=== PATIENT | female | born 1950 | race Caucasian/White ===

== ENCOUNTER 2016-05-24 21:07 | Emergency (ER) | payer OTHER ==
[2016-05-24 21:32] LABS: MANUAL DIFF NEEDED? NO
[2016-05-24 21:36] LABS: BASO% 0.2 % (0.0-0.8); EOS# 0.02 X1000 (0.0-0.7); EOS% 0.3 % (0.0-10.0); HEMATOCRIT 33.7 % (37.0-47.0); IMM GRAN# 0.04 X1000 (0.0-0.04); IMM GRAN% 0.7 % (0.0-0.5); LYMPH# 1.28 X1000 (1.2-3.4); LYMPH% 21.9 % (20.5-51.1); MCH 31.7 PG (27-31); MCHC 32.6 g/dL (33-37); MCV 97.1 FL (81-99); MONO# 0.27 X1000 (0.11-0.59); MONO% 4.6 % (1.7-9.3); MPV 9.8 FL (7.4-10.4); NEUT% 72.3 % (42.2-75.2); PLT 151 X1000 (130-400); RBC 3.47 XMIL (4.2-5.4)
[2016-05-24 21:51] LABS: AGAP 11; ALBUMIN 3.8 g/dL (3.5-5.0); ALKALINE PHOSPHATASE 80 U/L (32-104); BUN 2 mg/dL (8-22); CHLORIDE 95 mmol/L (98-107); COSMO 269; GOT 27 U/L (10-30); GPT 13 U/L (10-36); POTASSIUM 3.7 mmol/L (3.5-5.1); SODIUM 136 mmol/L (136-145); TCO2 30 mmol/L (25-35); TOTAL PROTEIN 7.1 g/dL (6.3-8.3)
--- NOTE | 2016-05-24 22:18 | PROVIDER DOCUMENTATION ---
HPI-General Adult - General Chief Complaint: General Adult Stated Complaint: "CONFUSE" Time Seen by Provider: 05/24/16 22:08 Source: patient, family Allergies/Adverse Reactions: Patient Allergies Allergy/AdvReac Type Severity Reaction Status Date / Time cefdinir Allergy SWELLING Verified 05/24/16 22:45 doxycycline Allergy SWELLING Verified 05/24/16 22:45 Penicillins Allergy Unknown Verified 05/24/16 22:45 Home Medications: Alprazolam [Xanax] 1 mg PO TID 09/06/15 Amitriptyline [Elavil] 50 mg PO BID 09/06/15 Gabapentin [Neurontin] 300 mg PO TID 09/06/15 Hydrocodone/APAP 10 mg/325 mg [[place]-10] 10 mg PO TID 09/06/15 Trazodone [Desyrel] 50 mg PO QHS 09/06/15 Methocarbamol [Robaxin] 500 mg PO BID 05/24/16 - History of Present Illness -Gen Adult Nature of Presenting Problems: 65 y/o f presents to the ed with confusion. per daughter the pt has stage 1 lung cancer. per daughter the pt seems to be confused at times and not acting like herself. Location of Pain/Injury: reports: generalized Severity: reports: mild Onset/Duration: reports: this evening Timing: reports: still present Similar Symptoms Previously?: No Recently seen or treated by another doctor?: No Review of Systems - Adult - REVIEW OF SYSTEMS - ADULT Constitutional: denies: chills, fever Gastrointestinal: reports: abdominal pain. denies: vomiting Neurological: denies: dizziness/vertigo, headache/migraines Past History - Adult - PAST MEDICAL HISTORY-ADULT Review of Records: reports: Old Records Reviewed, Nursing Assessment Review, Medications Reviewed Cardiovascular: reports: other (enlarged heart) Respiratory: reports: COPD Musculoskeletal: reports: chronic pain Psychiatric: reports: anxiety - PRIOR SURGERIES/PROCEDURES Surgical/Procedure History: reports: hysterectomy, orthopedic (extremity) - IMMUNIZATION STATUS Childhood Immunizations: See Nurse Assessment Flu Vaccine: See Nurse Assessment - SOCIAL HISTORY Smoking: cigarettes, less than 1 pack/day Provider spent 3-5 mins advising pt. on dangers of tobacco.: Discussed manners to quit use, and f/u contacts for add'l counseling. Physical Exam-General - PHYSICAL EXAM-ADULT Initial Vital Signs Reviewed: Yes - CONSTITUTIONAL General Appearance: alert, no apparent distress - EYES Eyes: PERRL/EOMI, pink conjunctivae, fundi clear, no AV nicking - HEAD, EARS, NOSE, MOUTH & THROAT HENMT: normocephalic/atraumatic, moist mucous membranes, normal ENT inspection - NECK Neck: non-tender, full range of motion, supple - RESPIRATORY Respiratory: chest non-tender, lungs clear, normal breath sounds - CARDIOVASCULAR Cardiovascular: normal peripheral pulses, regular rate, rhythm - GASTROINTESTINAL (ABDOMEN) Abdominal Exam: normal bowel sounds, non tender, soft - LYMPHATIC Lymphatic: no adenopathy - MUSCULOSKELETAL Back Exam: normal inspection - SKIN Integumentary: normal turgor, warm/dry, abrasion(s) - PSYCHIATRIC Psych/Mental Status: normal mood/affect, normal thought content, normal thought process, oriented x 3 Progress - PLAN OF CARE/RESULTS Progress/Plan/Lab Results: plan of care: labs, imaging Laboratory Tests 05/24/16 05/24/16 05/24/16 21:20 21:20 21:20 WBC 5.85 RBC 3.47 L Hgb 11.0 L Hct 33.7 L MCV 97.1 MCH 31.7 H MCHC 32.6 L RDW Std Deviation 13.5 Plt Count 151 MPV 9.8 Immature Gran % (Auto) 0.7 H Neut % (Auto) 72.3 Lymph % (Auto) 21.9 [place] % (Auto) 4.6 Eos % (Auto) 0.3 Baso % (Auto) 0.2 Immature Gran # (Auto) 0.04 Neut # (Auto) 4.23 Lymph # (Auto) 1.28 [place] # (Auto) 0.27 Eos # (Auto) 0.02 Baso # (Auto) 0.01 Sodium 136 Potassium 3.7 Chloride 95 L Carbon Dioxide 30 Anion Gap 11 BUN 2 L Creatinine 0.8 Estimated GFR/1.73 m2 > 60 BUN/Creatinine Ratio 3 Glucose 121 H Calculated Osmolality 269 Calcium 9.0 Total Bilirubin 0.40 AST 27 ALT 13 Alkaline Phosphatase 80 Creatine Kinase 304 H Troponin T Dho-E-Ovhfadqniex Pept 1227 H Total Protein 7.1 Albumin 3.8 Globulin 3.3 Albumin/Globulin Ratio 1.2 Plasma/Serum Ethyl Alc 05/24/16 05/24/16 21:20 Unknown WBC RBC Hgb Hct MCV MCH MCHC RDW Std Deviation Plt Count MPV Immature Gran % (Auto) Neut % (Auto) Lymph % (Auto) [place] % (Auto) Eos % (Auto) Baso % (Auto) Immature Gran # (Auto) Neut # (Auto) Lymph # (Auto) [place] # (Auto) Eos # (Auto) Baso # (Auto) Sodium Potassium Chloride Carbon Dioxide Anion Gap BUN Creatinine Estimated GFR/1.73 m2 BUN/Creatinine Ratio Glucose Calculated Osmolality Calcium Total Bilirubin AST ALT Alkaline Phosphatase Creatine Kinase Troponin T < 0.010 Wep-F-Pyvsekgmode Pept Total Protein Albumin Globulin Albumin/Globulin Ratio Plasma/Serum Ethyl Alc Orders Category Date Time Status Saline Loc DIRECTED Care 05/24/16 21:25 Active HEAD W/O CONTRAST [CT] Stat Exams 05/24/16 21:33 Taken cxr [CHEST-2 VIEWS] [RAD] Stat Exams 05/24/16 21:31 Taken ALCOHOL BLOOD Stat Lab 05/24/16 Completed CBC WITH ELECTRONIC DIFF [HEME] Stat Lab 05/24/16 21:20 Completed CK TOTAL [CHEM] Stat Lab 05/24/16 21:20 Completed CMP [COMPREHENSIVE METABOLIC PANEL] [CHEM] Stat Lab 05/24/16 21:20 Completed PRO [PRO B-NATRIURETIC PEPTIDE] Stat Lab 05/24/16 21:20 Completed TROPONIN T Stat Lab 05/24/16 21:20 Completed UA Reflex [URINALYSIS W/POSS RFLX CULT] [URINALYSIS] Lab 05/24/16 21:33 Uncollected Stat UDS [URINE DRUG SCREEN] Stat Lab 05/24/16 21:33 Uncollected Pulse Oximetry Stat Oth 05/24/16 21:25 Active Vital Signs - 24 hr 05/24/16 21:13 Temperature 98.1 F Pulse Rate 89 Respiratory 22 Rate Blood Pressure 134/79 O2 Sat by Pulse 97 Oximetry - CT/MRI 1 CT Study: Head Impression: Normal CT Results: NAD Departure - Departure Time of Disposition Order: 23:09 DIAGNOSIS: UTI (urinary tract infection) Qualifiers: Urinary tract infection type: site unspecified Hematuria presence: without hematuria Qualified Code(s): N39.0 - Urinary tract infection, site not specified Lung cancer Qualifiers: Laterality: unspecified laterality Lung location: unspecified part of lung Qualified Code(s): C34.90 - Malignant neoplasm of unspecified part of unspecified bronchus or lung Disposition: HOME 01 Certified Medical Emergency: Emergent Condition: Stable Additional Instructions: ED Follow Up Instructions: You have been treated by a care provider in the Emergency Department. These instructions are being provided to you so you can have an understanding of how to care for yourself upon discharge. Upon discharge from the Emergency Department, you are responsible for making arrangements for follow-up care by a physician of your choice. Take all prescribed medications as directed. Return to the Emergency Department immediately for any new or worsening symptoms. You may call the Physician Referral phone number at [phone] to obtain a list of Physicians who are taking new patients. Referrals: Tejas Duckworth MD [Primary Care Provider] - Attestation - Scribe Verification/Attestation Scribe:: Josette Islas Acting as Scribe for:: Corey Andrade Scribe documention review:: This chart was documented by a scribe and accurately reflects the service the provider performed and the decisions made by the provider.
[2016-05-24 22:48] LABS: URINE CULTURE NEEDED? NO; URINE MICRO REVIEW NEEDED? NO; URINE SOURCE CLEAN CATCH
[2016-05-24 22:51] LABS: BILIRUBIN URINE NEGATIVE (NEGATIVE); BLOOD URINE NEGATIVE (NEGATIVE); COLOR YELLOW; GLUCOSE URINE NEGATIVE (NEGATIVE); LEUKOCYTES URINE NEGATIVE (NEGATIVE); NITRITE URINE POSITIVE (NEGATIVE); PH URINE 5.5; PROTEIN URINE TRACE mg/dL (NEGATIVE); SP GRAVITY URINE 1.015; TURBIDITY URINE HAZY (CLEAR); UROBILINOGEN URINE NORMAL (NORMAL)
[2016-05-24 22:53] LABS: UR EPITHELIAL CELLS <10 /HPF (<10); URINE BACTERIA 4+ /HPF; URINE RBC <10 /HPF (<10); URINE WBC <10 /HPF (<10)
[2016-05-24] MEDS ORDERED: MACROBID PO ONE (23:09)
[2016-05-24 23:18] LABS: UR AMPHETAMINES QUAL NONE DETECTED (NONE DETECT); UR BARBITUATES QUAL NONE DETECTED (NONE DETECT); UR BENZODIAZEPIN QUAL PRESUMPTIVE POSITIVE (NONE DETECT); UR CANNABINOIDS QUAL NONE DETECTED (NONE DETECT); UR COCAINE QUAL NONE DETECTED (NONE DETECT); UR METHADONE QUAL NONE DETECTED (NONE DETECT); UR OPIATES QUAL PRESUMPTIVE POSITIVE (NONE DETECT); UR OXYCODONE QUAL NONE DETECTED (NONE DETECT); UR PCP QUAL NONE DETECTED (NONE DETECT)
[2016-05-24 23:34] VITALS: BP 129/71
--- NOTE | 2016-05-25 08:29 | Diag Imaging Result Document ---
PROCEDURE NAME: CHEST-2 VIEWS - 05/24/2016 2 VIEWS OF THE CHEST: FINDINGS: There are calcified nodes in the right hilum and upper lobe. There is no evidence of acute cardiac or pulmonary disease. IMPRESSION: Old granulomatous changes.
--- NOTE | 2016-05-25 08:42 | Diag Imaging Result Document ---
PROCEDURE NAME: HEAD W/O CONTRAST - 05/24/2016 CT HEAD WITHOUT CONTRAST: A dose-reduction protocol was used. COMPARISON: 09/06/2015. FINDINGS: There are mild chronic microvascular ischemic changes. There is no indication of recent infarct, although acute infarcts may not be immediately visible. There is no evidence of intracranial hemorrhage, mass effect, midline shift, or hydrocephalus. There is paranasal sinusitis noted, most prominent at the left maxillary sinus. IMPRESSION: 1. No visible acute intracranial abnormality. No hemorrhage or mass effect. 2. Paranasal sinusitis, most prominent at the left maxillary sinus. A [facility] physician provided preliminary results at 10:43 p.m. on 05/24/2016.
== END 2016-05-24 23:33 | disposition home or self-care (01) ==
LOC: ED 21:07
DX: N39.0 Urinary tract infection, site not specified (principal); C34.90 Malignant neoplasm of unspecified part of unspecified bronchus or lung; R41.0 Disorientation, unspecified; R10.9 Unspecified abdominal pain; I51.7 Cardiomegaly; J44.9 Chronic obstructive pulmonary disease, unspecified; G89.29 Other chronic pain; T14.8 Other injury of unspecified body region; Z79.899 Other long term (current) drug therapy; F41.9 Anxiety disorder, unspecified; F17.210 Nicotine dependence, cigarettes, uncomplicated; Z71.6 Tobacco abuse counseling
CPT/HCPCS: 36415; 70450; 71020; 80053; 81001; 82550; 82948; 83880; 84484; 85025; G0480